=== PATIENT | female | born 1990 | race Caucasian/White ===

== ENCOUNTER 2021-04-14 12:01 | Day surgery (SDC) | payer BC ==
[~2021-04-14 12:01] MED LIST: Bupivacaine 0.5% 30 ML SDV ONE; Lactated Ringers 1,000 ML IV SCH; Lidocaine 1%/Sod Bicarbonate in NS 8.4% 1 ML Syringe IDERM PRN; Sodium Chloride 0.9% 10 ML Syringe FLUSH PRN
--- NOTE | 2021-04-14 12:38 | PCM.PREANE ---
Preanesthetic Assessment - Procedure Proposed Procedure: Diagnostic Laparoscopy - Anesthesia/Transfusion/Family Hx Anesthesia History: Prior Anesthesia Without Reaction Family History of Anesthesia Reaction: No Transfusion History: No Prior Transfusion(s) Intubation History: Unknown - Review of Systems General: No Symptoms, Fatigue Pulmonary: No Symptoms (Smoker: 1/4 ppd times 2 years, ETOH: occasionally/ Marijuana weekly) Cardiovascular: No Symptoms, Palpitations Gastrointestinal: No Symptoms, Abdominal Pain (Lower abdominal pain: 7/10) Neurological: No Symptoms Other: Reports: None - Physical Assessment NPO Status Date: 04/14/21 NPO Status Time: 06:00 (coffee) Vital Signs: Last Vital Signs Temp 37.1 C 04/14/21 12:10 Pulse 85 04/14/21 12:10 Resp 16 04/14/21 12:10 BP 115/63 04/14/21 12:10 Pulse Ox 97 04/14/21 12:10 Height: 1.55 m Weight: 64.9 kg ASA Class: 2 Mental Status: Alert & Oriented x3 Airway Class: Mallampati = 2 Dentition: Reports: Normal Dentition, Caries Thyro-Mental Finger Breadths: 3 Mouth Opening Finger Breadths: 3 ROM/Head Extension: Full Lungs: Clear to Auscultation, Normal Respiratory Effort Cardiovascular: Regular Rate, Regular Rhythm, No Murmurs - Lab Values: All labs reviewed and noted and within acceptable ranges to proceed with scheduled procedure. - Allergies Allergies/Adverse Reactions: Allergies Allergy/AdvReac Type Severity Reaction Status Date / Time egg Allergy Severe Hives Verified 04/14/21 12:33 - Anesthesia Plan Pre-Op Medication Ordered: None - Acknowledgements Anesthesia Type Planned: General Anesthesia Pt an Appropriate Candidate for the Planned Anesthesia: Yes Alternatives and Risks of Anesthesia Discussed w Pt/Guardian: Yes Pt/Guardian Understands and Agrees with Anesthesia Plan: Yes PreAnesthesia Questionnaire - HOME MEDS Home Medications: Home Meds . [No Known Home Meds] 04/14/21 [History] - CURRENT (IN HOUSE) MEDS Current Meds: Current Medications Lactated Ringer's (Ringers, Lactated) 1,000 mls @ 125 mls/hr IV ASDIRECTED NESTOR Stop: 04/14/21 23:00 Last Admin: 04/14/21 12:31 Dose: 125 mls/hr Documented by: Lidocaine/Sodium Bicarbonate (Lidocaine 1%/Sod Bicarbonate In Ns 8.4% 1 Ml Syringe) 0.25 ml IDERM ONETIME PRN PRN Reason: Prior to IV Start Stop: 04/14/21 18:00 Sodium Chloride (Sodium Chloride 0.9% 10 Ml Syringe) 10 ml FLUSH ASDIRECTED PRN PRN Reason: Keep Vein Open Stop: 04/14/21 18:00 Discontinued Medications Bupivacaine HCl (Bupivacaine 0.5% 30 Ml Sdv) Confirm Administered Dose 30 ml .ROUTE .[facility] Stop: 04/14/21 11:09 Last Admin: 04/14/21 11:15 Dose: 30 ml Documented by:
[2021-04-14] MEDS ORDERED: Dexamethasone 4 MG/ML 5 ML MDV ONE (12:43)
[2021-04-14] MEDS ORDERED: Ondansetron 4 MG/2 ML SDV ONE (12:43)
[2021-04-14] MEDS ORDERED: Rocuronium 50 MG/5 ML Vial ONE (12:43)
[2021-04-14] MEDS ORDERED: ceFAZolin 1 GM Vial ONE (12:43)
[2021-04-14] MEDS ORDERED: Lactated Ringers 1,000 ML ONE (12:43)
[2021-04-14] MEDS ORDERED: Ketorolac 30 MG/ML SDV ONE (12:43)
[2021-04-14] MEDS ORDERED: fentaNYL 250 MCG/5 ML SDV ONE (12:44)
[2021-04-14] MEDS ORDERED: Midazolam 1 MG/ML 2 ML SDV ONE (12:44)
[2021-04-14] MEDS ORDERED: Propofol 200 MG/20 ML SDV ONE (12:44)
[2021-04-14] MEDS ORDERED: HYDROmorphone 1 MG/ML Syringe ONE (12:44)
[2021-04-14] MEDS ORDERED: Etomidate 2 MG/ML 20 ML SDV IVPUSH ONE (13:04)
[2021-04-14] MEDS ORDERED: Albuterol 0.083% 2.5 MG/3 ML Neb Soln NEB PRN (13:34)
[2021-04-14] MEDS ORDERED: HYDROmorphone 0.5 MG/0.5 ML Syringe IVPUSH PRN ×2 (13:34→14:39)
[2021-04-14] MEDS ORDERED: Ondansetron 4 MG/2 ML SDV IVPUSH PRN ×2 (13:34→15:30)
[2021-04-14] MEDS ORDERED: diphenhydrAMINE 50 MG/ML SDV IVPUSH PRN (13:34)
[2021-04-14] MEDS ORDERED: Midazolam 1 MG/ML 2 ML SDV IVPUSH PRN (13:34)
[2021-04-14] MEDS ORDERED: ePHEDrine 50 MG/ML SDV IVPUSH PRN (13:34)
[2021-04-14] MEDS ORDERED: fentaNYL 100 MCG/2 ML SDV IVPUSH PRN ×2 (13:34→14:39)
--- NOTE | 2021-04-14 14:40 | PCM.POSTAN ---
POST ANESTHESIA ASSESSMENT - MENTAL STATUS Mental Status: Alert, Oriented - VITAL SIGNS Vital Signs: Last Vital Signs Temp 37.1 C 04/14/21 12:10 Pulse 85 04/14/21 12:10 Resp 16 04/14/21 12:10 BP 115/63 04/14/21 12:10 Pulse Ox 97 04/14/21 12:10 - RESPIRATORY Respiratory Status: Respiratory Rate WNL, Airway Patent, O2 Saturation Stable, Supplemental Oxygen - CARDIOVASCULAR CV Status: Pulse Rate WNL - GASTROINTESTINAL GI Status: No Symptoms - PAIN Pain Score: 0 - POST OP HYDRATION Hydration Status: Adequate & Stable - OBSERVATIONS Free Text/Narrative:: no anesthesia complications noted
--- NOTE | 2021-04-14 14:57 | PCM48HPAN ---
Post Anesthesia Note - EVALUATION WITHIN 48HRS OF ANESTHETIC Vital Signs in Normal Range: Yes Patient Participated in Evaluation: Yes Respiratory Function Stable: Yes Airway Patent: Yes Cardiovascular Function Stable: Yes Hydration Status Stable: Yes Pain Control Satisfactory: Yes Nausea and Vomiting Control Satisfactory: Yes Mental Status Recovered: Yes Vital Signs: Last Vital Signs Temp 36.5 C 04/14/21 14:48 Pulse 80 04/14/21 14:48 Resp 10 L 04/14/21 14:48 BP 119/700 H 04/14/21 14:48 Pulse Ox 100 04/14/21 14:48
[2021-04-14] MEDS ORDERED: Acetaminophen/oxyCODONE 325-5 MG Tab PO PRN (15:30)
[2021-04-14] MEDS ORDERED: Ibuprofen 600 MG Tab PO PRN (15:30)
[2021-04-14 16:35] VITALS: BP 104/64; PULSE 74
--- NOTE | 2021-04-15 05:19 | PCM.OPNOTE ---
- General Post-Op/Procedure Note Date of Surgery/Procedure: 04/14/21 Operative Procedure(s): Laparoscopy, left salpingectomy Findings: Patient is noted to have moderate scarring in the lower anterior abdominal wall secondary C-sections. The left fallopian tube was distended and enlarged and bluish discolored consistent with an ectopic . The left fallopian tube was intimately attached to the ovary and intraoperative the antimesenteric surface of the ovary and an adhesive weight. The right fallopian tube and right ovary were within normal limits. Posterior cul-de-sac had some minimal adhesions present. Entry cul-de-sac also secondary to the . Upper abdomen is normal gallbladder appeared noninflamed and liver edges were within normal limits. There was approximate 50 cc of blood in the peritoneal cavity secondary to bleeding from the end of the left fallopian tube consistent with ectopic . Pre Op Diagnosis: Left ectopic Post-Op Diagnosis: Left tubal Anesthesia Technique: General ET Tube Other Anesthesia Type: Marcaine 0.5%local10 cc total Primary Surgeon: Adrian Kiser Secondary Surgeon: Georges Austin Anesthesia Provider: Vesta Phillips Vacuum Cleaner Repairer: Aisha Butler Reason Vacuum Cleaner Repairer Was Necessary: Retraction, assistance, patient safety, quality of care. Pathology: Left fallopian tube Fluid Replacement, Intraop: 1,800 Output, Urine Amount: 25 EBL in mLs: 100 Drain/Tube Comments:: Indwelling bladder catheter during surgery only. Complications: None Condition: Good Free Text/Narrative:: Intake & Output 04/14/21 04/14/21 04/15/21 14:59 22:59 06:59 Intake Total 100 Output Total 25 Balance -25 100 Surgery duration: 57 minutes Procedure: The patient was taken to the operating room and placed in supine position on the operative table. She had sequential compression stockings in place for DVT prophylaxis and had been given 2 g of Ancef IV for infection prophylaxis. She was administered general endotracheal anesthesia. After administration of anesthesia the patient was placed in dorsal lithotomy position and prepped and draped in usual fashion. An indwelling bladder catheter was placed. Infraumbilical incision site and suprapubic site were then infiltrated with approximately 3-4 mL of Marcaine 0.5%. 5 mm incisions were made in these areas. Verres needle was placed in the infraumbilical incision site and pneumoperitoneum was established was in 3 L of CO2. The laparoscopic sleeve was then placed as was the scope. Under direct visualization the suprapubic site was developed with a 5 mm port. A left lower quadrant 5 mm port was also placed under direct visualization. Pelvis was evaluated findings as above. Findings were as described above. Using an Enseal vessel closure system the left fallopian tube was removed in its entirety. Care was taken to slowly release it from the antimesenteric surface of the ovary. It was then removed through the suprapubic port which was enlarged to a 12 mm size. This after an attempt to remove through 5 mm port was unsuccessful. The pelvis was irrigated and blood was aspirated. Findings were as described above. Right fallopian tube and ovary were within normal limits. Left ovary was found to be hemostatically intact. At this point procedure was discontinued. The lower sleeve having been removed under direct visualization. Using a Amador Mcpherson closure device the lower suprapubic incision site was closed with a single suture of 0 Vicryl. This adequately close the site to reduce the chance of any hernia or incarceration/strangulation of bowel from occurring. The the left lower quadrant port and eventually the upper port were removed after discontinuation of the pneumoperitoneum. The incisions were closed with subcuticular stitches of interrupted suture of 3-0 Monocryl. The incisions were further approximated with Dermabond skin glue. Patient was returned to the supine position and awakened from general endotracheal anesthesia. She left the operating room in good condition.
== END 2021-04-14 16:56 | disposition home or self-care (01) ==
LOC: JD.SDS 12:01
PROVIDERS: ATTEND Obstetrics & Gynecology
DX: O00.102 Left tubal pregnancy without intrauterine pregnancy (principal); D25.9 Leiomyoma of uterus, unspecified; R79.89 Other specified abnormal findings of blood chemistry; F17.210 Nicotine dependence, cigarettes, uncomplicated; Z01.812 Encounter for preprocedural laboratory examination; Z20.822 Contact with and (suspected) exposure to COVID-19; Z98.890 Other specified postprocedural states; Z91.012 Allergy to eggs
CPT/HCPCS: 59151; 87635; A9270; J0690; J1100; J1170; J1885; J2250; J2405; J3010; J3490; J7120; 00840; J2704; U0002

== ENCOUNTER 2022-06-08 01:36 | Inpatient (IN) | payer MEDICAID ==
[2022-06-08] MEDS: Lactated Ringers 1,000 ML IV SCH ×2 (05:39→07:23)
[2022-06-08] MEDS ORDERED: Citric Acid/Sodium Citrate Solution 30 ML Cup PO ONE (06:45)
[2022-06-08] MEDS ORDERED: Metoclopramide 10 MG/2 ML SDV IVPUSH ONE (06:45)
[2022-06-08] MEDS ORDERED: Lactated Ringers 1,000 ML ONE (06:50)
[2022-06-08] MEDS ORDERED: Ketorolac 30 MG/ML SDV ONE (06:50)
[2022-06-08] MEDS ORDERED: Ondansetron 4 MG/2 ML SDV ONE (06:50)
[2022-06-08] MEDS ORDERED: Dexamethasone 4 MG/ML SDV ONE (06:50)
[2022-06-08] MEDS ORDERED: Morphine PF 10 MG/10 ML SDV ONE (06:50)
[2022-06-08] MEDS ORDERED: ceFAZolin 2 GM Vial ONE (06:51)
[2022-06-08] MEDS ORDERED: Bupivacaine 0.5% 30 ML SDV ONE (07:08)
[2022-06-08] MEDS ORDERED: Phenylephrine HCl In 0.9% NaCl 1 MG/10 ML Vial ONE (07:58)
[2022-06-08] MEDS ORDERED: ceFAZolin 2 GM in Sodium Chloride 0.9% 50 ML IV ONE (08:00)
[2022-06-08] MEDS ORDERED: Oxytocin 10 Units/1 ML SDV ONE (08:00)
[2022-06-08] MEDS ORDERED: fentaNYL 100 MCG/2 ML SDV IVPUSH PRN (08:19)
[2022-06-08] MEDS ORDERED: diphenhydrAMINE 50 MG/ML SDV IVPUSH PRN ×2 (08:19→09:27)
[2022-06-08] MEDS ORDERED: Ondansetron 4 MG/2 ML SDV IVPUSH PRN (08:19)
[2022-06-08] MEDS ORDERED: Naloxone 0.4 MG/ML SDV IVPUSH PRN (09:27)
[2022-06-08] MEDS ORDERED: Dextrose 5%-Lactated Ringers 1,000 ML IV SCH (09:27)
[2022-06-08] MEDS ORDERED: Docusate Sodium 100 MG Cap PO PRN (09:27)
[2022-06-08] MEDS ORDERED: Acetaminophen/oxyCODONE 325-5 MG Tab PO PRN (09:27)
[2022-06-08] MEDS ORDERED: Ondansetron 4 MG/2 ML SDV IV PRN (09:27)
[2022-06-08] MEDS ORDERED: Ibuprofen 600 MG Tab PO SCH (09:27)
[2022-06-08] MEDS ORDERED: ePHEDrine 50 MG/ML SDV IVPUSH PRN (09:27)
[2022-06-08] MEDS: Simethicone 80 MG Tab.Chew PO SCH ×4 (10:47→20:17)
[2022-06-08] MEDS: Prenatal Multivitamin with Calcium/Folic Acid/Iron Tab PO SCH (13:52)
[2022-06-08] MEDS: Ibuprofen 600 MG Tab PO SCH ×2 (13:52→20:05)
[2022-06-08] MEDS: Acetaminophen/oxyCODONE 325-5 MG Tab PO PRN (23:33)
[2022-06-09] MEDS: Ibuprofen 600 MG Tab PO SCH ×4 (02:57→20:21)
[2022-06-09] MEDS: Prenatal Multivitamin with Calcium/Folic Acid/Iron Tab PO SCH (08:19)
[2022-06-09] MEDS: Simethicone 80 MG Tab.Chew PO SCH ×4 (08:19→20:22)
[2022-06-09] MEDS: Acetaminophen/oxyCODONE 325-5 MG Tab PO PRN ×2 (09:22→17:39)
[2022-06-10] MEDS: Acetaminophen/oxyCODONE 325-5 MG Tab PO PRN ×2 (00:25→10:00)
[2022-06-10] MEDS: Ibuprofen 600 MG Tab PO SCH ×2 (02:39→08:18)
[2022-06-10] MEDS: Prenatal Multivitamin with Calcium/Folic Acid/Iron Tab PO SCH (08:19)
[2022-06-10] MEDS: Simethicone 80 MG Tab.Chew PO SCH (08:19)
[2022-06-10 09:45] VITALS: BP 104/73; PULSE 91
== END 2022-06-10 12:20 | disposition home or self-care (01) | DRG 787 ==
LOC: JD.OB 04:49
PROVIDERS: ADMIT Obstetrics & Gynecology; ATTEND Obstetrics & Gynecology
PROC: 10D00Z1 Extraction of Products of Conception, Low, Open Approach (ICD-10-PCS; principal; 2022-06-08)
DX: O34.211 Maternal care for low transverse scar from previous cesarean delivery (principal); D68.51 Activated protein C resistance; O99.12 Other diseases of the blood and blood-forming organs and certain disorders involving the immune mechanism complicating childbirth; Z3A.39 39 weeks gestation of pregnancy; Z37.0 Single live birth; O24.420 Gestational diabetes mellitus in childbirth, diet controlled; D69.6 Thrombocytopenia, unspecified; Z79.82 Long term (current) use of aspirin; Z90.89 Acquired absence of other organs; Z91.012 Allergy to eggs; Z87.891 Personal history of nicotine dependence
CPT/HCPCS: 36415; 59025; 85025; 86592; 86850; 86870; 86900; 86901; 94762; A9270-GY; J0690; J1100; J1885; J2274; J2405; J2590; J2765; J3490; J7120; J7121